=== PATIENT | male | born 1940 | race Caucasian/White ===

== ENCOUNTER 2018-04-17 14:27 | Inpatient (IN) ==
[2018-04-17] MEDS ORDERED: DILTIAZEM 50 MG/10 ML VIAL IV ONE (14:41)
[2018-04-17] MEDS ORDERED: SODIUM CHLORIDE 0.9% 100 ML IV ONE (14:42)
[2018-04-17] MEDS ORDERED: METOPROLOL TARTRATE 5 MG/5 ML VIAL IV ONE (14:48)
[2018-04-17] MEDS ORDERED: PROPOFOL 1,000 MG/100 ML BOTTLE IV ONE (14:51)
[2018-04-17] MEDS ORDERED: DILTIAZEM 25 MG/5 ML VIAL IV ONE (14:52)
[2018-04-17] MEDS ORDERED: DILTIAZEM 50 MG/10 ML VIAL IV STA (14:53)
[2018-04-17] MEDS ORDERED: ETOMIDATE 20 MG/10 ML VIAL IV ONE (14:53)
[2018-04-17] MEDS ORDERED: ROCURONIUM 100 MG/10 ML VIAL IV ONE (14:53)
[2018-04-17] MEDS ORDERED: METOPROLOL TARTRATE 5 MG/5 ML VIAL IV STA (14:54)
[2018-04-17] MEDS ORDERED: VECURONIUM 10 MG VIAL IV ONE (14:54)
[2018-04-17] MEDS: PROPOFOL 1,000 MG/100 ML BOTTLE IV SCH ×2 (14:58→23:09)
[2018-04-17] MEDS ORDERED: DILTIAZEM INJ 100 MG in SODIUM CHLORIDE 0.9% 100 ML IV SCH (15:00)
[2018-04-17] MEDS ORDERED: FUROSEMIDE 100 MG/10 ML VIAL ONE (15:01)
[2018-04-17 15:03] LABS: Lymphocytes % 14.6 % (21.2-54.2)
[2018-04-17] MEDS ORDERED: FUROSEMIDE 40 MG/4 ML VIAL IV STA (15:04)
[2018-04-17] MEDS ORDERED: hydrALAZINE 20 MG/1 ML VIAL IV STA (15:04)
[2018-04-17] MEDS ORDERED: MORPHINE 10 MG/1 ML VIAL IV ONE (15:04)
[2018-04-17 15:09] LABS: Apearance,Urine CLOUDY (Clear); Bacteria,Urine Many /HPF (Few); Barbiturates Screen,Urine Negative (Negative); Benzodiazepines Screen,Urine Negative (Negative); Bilirubin,Urine Negative (Negative); Blood, Urine Negative (Negative); Cannabinoid Screen,Urine Negative (Negative); Glucose,Urine (UA) Negative (Negative); Ketones,Urine 5 mg/dL (Negative); Nitrite,Urine Positive (Negative); Opiate Screen,Urine Negative (Negative); Phencyclidine Screen,Urine Negative (Negative); Protein,Urine 100 MG/DL; RBC,Urine 9 /HPF (0-4); Squamous Epithelial Cell,Urine Occasional /HPF (0-10); Urine Color Yellow (Yellow); Urine Specific Gravity 1.011 (1.001-1.035); Urine Urobilinogen < 2.0 EU/DL (0.2-1.0); WBC,Urine 265 /HPF (0-6)
[2018-04-17 15:12] LABS: Basophils # 0.2 10*3/uL (0.0-0.2); Eosinophils # 0.4 10*3/uL (0.0-0.87); Eosinophils % 2.9 % (0.00-10.9); Hematocrit 32.2 VOL% (42.0-52.0); Hemoglobin 9.6 GM/DL (14.0-18.0); Immature Granulocytes Absolute 0.46 #; Lymphocytes # 2.2 10*3/uL (1.4-4.0); Mean Corpuscular HGB Conc 29.8 GM/DL (32-36); Mean Corpuscular Hemoglobin 32 PG (27-34); Mean Corpuscular Volume 108.4 FL (87-102); Mean Platelet Volume 11.7 FL (9.6-12.0); Monocytes # 0.5 10*3/uL (0.11-0.8); Monocytes % 3.5 % (1.7-12.7); NRBC # 0.07 10*3/uL; Neutrophils # 11.5 10*3/uL (1.4-7.4); Platelet Count 260 T/CUMM (130-400); Red Blood Count 2.97 MC/CUMM (3.8-5.5); Red Cell Distribution Width 14.5 % (9.3-17.3); White Blood Count 15.3 T/CUMM (4-12)
[2018-04-17 15:13] LABS: ABG Base Excess -14.4 MMOL/L (-2.5-2.5); ABG HCO3 14.2 MMOL/L (20-26); ABG Oxygen Saturation 98.3 % (95-100); ABG TCO2 14.1 MMOL/L (23-27)
[2018-04-17 15:15] LABS: ABG PCO2 49.6 MM HG (35-48)
[2018-04-17 15:24] LABS: Albumin 4.2 G/DL (3.4-5.0); Bilirubin,Total 1.2 MG/DL (0.2-1.0); Calcium 9.1 MG/DL (8.5-10.1); Osmolality,Calculated 279.1 MOS/KG (273-304); Potassium 3.6 MMOL/L (3.5-5.1); Total Protein 8.5 G/DL (6.4-8.3)
[2018-04-17] MEDS ORDERED: ALBUTEROL 2.5 MG/3 ML NEB RESP TX PRN (15:34)
[2018-04-17] MEDS ORDERED: ONDANSETRON 4 MG/2 ML VIAL IV PRN (15:34)
[2018-04-17 15:53] LABS: Lymphocytes 4 % (20-55); Metamyelocytes 1 %; Segmented Neutrophils 94 % (50-85); Total Cells Counted 100; Toxic Granulation 1+
[2018-04-17 15:55] LABS: Anisocytosis Slight; Macrocytosis Slight; Polychromasia Slight
[2018-04-17 15:56] LABS: Platelet Estimate Normal; Spherocytes 2+
[2018-04-17] MEDS ORDERED: ACETAMINOPHEN 650 MG SUPP RECTAL PRN (15:58)
[2018-04-17 17:15] LABS: ABG Base Excess -3.2 MMOL/L (-2.5-2.5); ABG HCO3 21.8 MMOL/L (20-26); ABG Oxygen Saturation 98.4 % (95-100); ABG PCO2 44.9 MM HG (35-48); ABG PH 7.324 (7.35-7.45); ABG TCO2 18.8 MMOL/L (23-27); Allen Test Positive; Pt O2 Delivery Device Ventilator
[2018-04-17] MEDS ORDERED: NOREPINEPHRINE 8 MG in SODIUM CHLORIDE 0.9% 242 ML IV PRN (17:28)
[2018-04-17] MEDS: ENOXAPARIN 80 MG/0.8 ML SYRINGE SUBCUT SCH (17:37)
[2018-04-17] MEDS: PANTOPRAZOLE 40 MG VIAL IV SCH (17:37)
[2018-04-17] MEDS: cefTRIAXone 1,000 MG in SYRINGE 1 EACH IV SCH (17:38)
[2018-04-18 04:11] LABS: Basophils # 0.2 10*3/uL (0.0-0.2); Basophils % 0.8 % (0.0-0.8); Eosinophils # 0.2 10*3/uL (0.0-0.87); Hemoglobin 15.7 GM/DL (14.0-18.0); Immature Granulocytes % 1.5 %; Immature Granulocytes Absolute 0.33 #; Lymphocytes # 1.3 10*3/uL (1.4-4.0); Lymphocytes % 5.6 % (21.2-54.2); Mean Corpuscular HGB Conc 31.4 GM/DL (32-36); Mean Corpuscular Hemoglobin 31 PG (27-34); Monocytes # 0.9 10*3/uL (0.11-0.8); Neutrophils # 19.4 10*3/uL (1.4-7.4); Neutrophils % 87.1 % (38.7-73.9); Platelet Count 421 T/CUMM (130-400); Red Blood Count 5.05 MC/CUMM (3.8-5.5); Red Cell Distribution Width 14.9 % (9.3-17.3); White Blood Count 22.3 T/CUMM (4-12)
[2018-04-18 04:12] LABS: ABG HCO3 26.2 MMOL/L (20-26); ABG Oxygen Saturation 99.3 % (95-100); ABG PCO2 32.9 MM HG (35-48); ABG PH 7.482 (7.35-7.45); ABG TCO2 20.1 MMOL/L (23-27); Pt O2 Delivery Device Ventilator
[2018-04-18 04:39] LABS: Albumin 2.8 G/DL (3.4-5.0); Bilirubin,Total 1.4 MG/DL (0.2-1.0); Osmolality,Calculated 284.5 MOS/KG (273-304); Potassium 4.4 MMOL/L (3.5-5.1); Risk Ratio 3.19; Thyroid Stimulating Hormone 1.36 uIU/ml (0.358-3.74); Total Protein 5.8 G/DL (6.4-8.3); VLDL CHOLESTEROL 28.8 MG/DL
[2018-04-18] MEDS ORDERED: MAGNESIUM SULF RIDER 2 GM in PREMIX 1 EACH IV PRN (05:12)
[2018-04-18] MEDS: ENOXAPARIN 80 MG/0.8 ML SYRINGE SUBCUT SCH ×2 (05:22→17:10)
[2018-04-18 06:46] LABS: Band Neutrophils 18 % (0-10); Lymphocytes 1 % (20-55); Platelet Estimate Normal; Polychromasia Slight; Segmented Neutrophils 76 % (50-85); Total Cells Counted 100
[2018-04-18] MEDS: PROPOFOL 1,000 MG/100 ML BOTTLE IV SCH ×3 (07:02→23:20)
[2018-04-18 13:04] LABS: ABG PH 7.133 (7.35-7.45)
[2018-04-18] MEDS: PANTOPRAZOLE 40 MG VIAL IV SCH (16:14)
[2018-04-18] MEDS: cefTRIAXone 1,000 MG in SYRINGE 1 EACH IV SCH (17:06)
[2018-04-18] MEDS ORDERED: AMIODARONE INJ 450 MG in DEXTROSE 5% 241 ML IV SCH (18:00)
[2018-04-18] MEDS: MEROPENEM 1,000 MG in SODIUM CHLORIDE 0.9% 100 ML IV SCH (18:25)
[2018-04-19] MEDS: AMIODARONE INJ 450 MG in DEXTROSE 5% 241 ML IV SCH ×2 (04:08→18:15)
[2018-04-19 04:25] LABS: ABG HCO3 23.6 MMOL/L (20-26); ABG Oxygen Saturation 99.5 % (95-100); ABG PCO2 35.8 MM HG (35-48); ABG PH 7.437 (7.35-7.45); ABG PO2 261.2 MM HG (80-95); ABG TCO2 24.7 MMOL/L (23-27); Allen Test Positive; Pt O2 Delivery Device Ventilator
[2018-04-19] MEDS: PROPOFOL 1,000 MG/100 ML BOTTLE IV SCH ×3 (06:16→20:11)
[2018-04-19] MEDS: MEROPENEM 1,000 MG in SODIUM CHLORIDE 0.9% 100 ML IV SCH ×2 (06:19→17:49)
[2018-04-19] MEDS: ENOXAPARIN 80 MG/0.8 ML SYRINGE SUBCUT SCH ×2 (06:19→18:16)
[2018-04-19 07:36] LABS: Basophils # 0.1 10*3/uL (0.0-0.2); Basophils % 0.8 % (0.0-0.8); Eosinophils # 0.4 10*3/uL (0.0-0.87); Eosinophils % 2.4 % (0.00-10.9); Hematocrit 47.4 VOL% (42.0-52.0); Hemoglobin 14.9 GM/DL (14.0-18.0); Immature Granulocytes % 1.4 %; Immature Granulocytes Absolute 0.21 #; Lymphocytes # 0.8 10*3/uL (1.4-4.0); Lymphocytes % 5.3 % (21.2-54.2); Mean Corpuscular HGB Conc 31.4 GM/DL (32-36); Mean Corpuscular Hemoglobin 32 PG (27-34); Mean Corpuscular Volume 100.6 FL (87-102); Mean Platelet Volume 11.7 FL (9.6-12.0); Monocytes # 0.5 10*3/uL (0.11-0.8); Monocytes % 3.7 % (1.7-12.7); Neutrophils # 12.8 10*3/uL (1.4-7.4); Neutrophils % 86.4 % (38.7-73.9); Platelet Count 278 T/CUMM (130-400); Red Blood Count 4.71 MC/CUMM (3.8-5.5); Red Cell Distribution Width 14.7 % (9.3-17.3); White Blood Count 14.8 T/CUMM (4-12)
[2018-04-19 08:03] LABS: Calcium 8.4 MG/DL (8.5-10.1); Osmolality,Calculated 285.5 MOS/KG (273-304); Potassium 3.9 MMOL/L (3.5-5.1)
[2018-04-19] MEDS ORDERED: GLUCAGON 1 MG VIAL IM PRN (09:47)
[2018-04-19] MEDS ORDERED: DEXTROSE 50% 25 GM/50 ML SYRINGE IV PRN (09:47)
[2018-04-19] MEDS ORDERED: FUROSEMIDE 20 MG/2 ML VIAL IV ONE (12:59)
[2018-04-19] MEDS ORDERED: SODIUM CHLORIDE 0.45% 1,000 ML IV SCH (13:30)
[2018-04-19] MEDS: PANTOPRAZOLE 40 MG VIAL IV SCH (15:58)
[2018-04-19] MEDS: POTASSIUM CHLORIDE 20 MEQ/15 ML UDCUP PER TUBE PRN (21:36)
[2018-04-20] MEDS: PROPOFOL 1,000 MG/100 ML BOTTLE IV SCH ×2 (00:10→03:44)
[2018-04-20 04:35] LABS: Pt O2 Delivery Device Ventilator
[2018-04-20 04:37] LABS: ABG Base Excess 1.9 MMOL/L (-2.5-2.5); ABG HCO3 26.1 MMOL/L (20-26); ABG Oxygen Saturation 98.2 % (95-100); ABG PCO2 40.9 MM HG (35-48); ABG TCO2 22.5 MMOL/L (23-27)
[2018-04-20 05:23] LABS: Basophils # 0.1 10*3/uL (0.0-0.2); Basophils % 0.7 % (0.0-0.8); Eosinophils # 0.4 10*3/uL (0.0-0.87); Eosinophils % 3.6 % (0.00-10.9); Hematocrit 46.7 VOL% (42.0-52.0); Hemoglobin 14.6 GM/DL (14.0-18.0); Immature Granulocytes % 1.3 %; Immature Granulocytes Absolute 0.16 #; Lymphocytes # 0.7 10*3/uL (1.4-4.0); Lymphocytes % 5.5 % (21.2-54.2); Mean Corpuscular HGB Conc 31.3 GM/DL (32-36); Mean Corpuscular Hemoglobin 31 PG (27-34); Mean Corpuscular Volume 100.4 FL (87-102); Mean Platelet Volume 11.7 FL (9.6-12.0); Monocytes # 0.4 10*3/uL (0.11-0.8); Neutrophils # 10.4 10*3/uL (1.4-7.4); Neutrophils % 85.9 % (38.7-73.9); Platelet Count 290 T/CUMM (130-400); Red Blood Count 4.65 MC/CUMM (3.8-5.5); Red Cell Distribution Width 14.8 % (9.3-17.3); White Blood Count 12.2 T/CUMM (4-12)
[2018-04-20 05:43] LABS: Calcium 8.4 MG/DL (8.5-10.1); Osmolality,Calculated 290.4 MOS/KG (273-304); Potassium 3.5 MMOL/L (3.5-5.1)
[2018-04-20] MEDS: POTASSIUM CHLORIDE 20 MEQ/15 ML UDCUP PER TUBE PRN ×2 (06:27→08:00)
[2018-04-20] MEDS: ENOXAPARIN 80 MG/0.8 ML SYRINGE SUBCUT SCH ×2 (06:27→17:50)
[2018-04-20] MEDS: MEROPENEM 1,000 MG in SODIUM CHLORIDE 0.9% 100 ML IV SCH (06:27)
[2018-04-20] MEDS: AMIODARONE INJ 450 MG in DEXTROSE 5% 241 ML IV SCH (10:25)
[2018-04-20] MEDS: cefTRIAXone 1,000 MG in SYRINGE 1 EACH IV SCH (12:40)
[2018-04-20] MEDS: PANTOPRAZOLE 40 MG VIAL IV SCH (17:45)
[2018-04-20] MEDS ORDERED: METOPROLOL TARTRATE 5 MG/5 ML VIAL IV PRN (19:10)
[2018-04-20] MEDS: AMIODARONE 200 MG TABLET PO SCH (20:20)
[2018-04-20] MEDS: CARVEDILOL 6.25 MG TABLET PO SCH (20:20)
[2018-04-21 05:52] LABS: Calcium 9.3 MG/DL (8.5-10.1); Osmolality,Calculated 283.4 MOS/KG (273-304); Potassium 4.1 MMOL/L (3.5-5.1)
[2018-04-21] MEDS: ENOXAPARIN 80 MG/0.8 ML SYRINGE SUBCUT SCH (06:25)
[2018-04-21 07:56] LABS: Hematocrit 54.7 VOL% (42.0-52.0); Immature Granulocytes % 1.7 %; Immature Granulocytes Absolute 0.26 #; Lymphocytes # 0.8 10*3/uL (1.4-4.0); Lymphocytes % 5.3 % (21.2-54.2); Mean Corpuscular HGB Conc 31.8 GM/DL (32-36); Red Cell Distribution Width 14.7 % (9.3-17.3)
[2018-04-21 08:05] LABS: Basophils # 0.2 10*3/uL (0.0-0.2); Eosinophils # 0.4 10*3/uL (0.0-0.87); Eosinophils % 2.7 % (0.00-10.9); Mean Corpuscular Hemoglobin 31 PG (27-34); Mean Corpuscular Volume 98.6 FL (87-102); Monocytes # 0.6 10*3/uL (0.11-0.8); Monocytes % 3.9 % (1.7-12.7); Neutrophils % 85.4 % (38.7-73.9); Platelet Count 277 T/CUMM (130-400); Red Blood Count 5.55 MC/CUMM (3.8-5.5); White Blood Count 15.2 T/CUMM (4-12)
[2018-04-21 08:08] LABS: Hemoglobin 17.4 GM/DL (14.0-18.0)
[2018-04-21] MEDS: AMIODARONE 200 MG TABLET PO SCH ×2 (09:00→20:32)
[2018-04-21] MEDS: CARVEDILOL 6.25 MG TABLET PO SCH ×2 (09:00→20:31)
[2018-04-21] MEDS: APIXABAN 5 MG TABLET PO SCH ×2 (09:45→20:32)
[2018-04-21] MEDS ORDERED: amLODIPine 5 MG TABLET PO SCH (10:30)
[2018-04-21] MEDS: cefTRIAXone 1,000 MG in SYRINGE 1 EACH IV SCH (10:45)
[2018-04-21] MEDS ORDERED: NIFEdipine 10 MG CAPSULE PO PRN (11:38)
[2018-04-21] MEDS: PANTOPRAZOLE 40 MG VIAL IV SCH (15:50)
[2018-04-22 05:11] LABS: Basophils # 0.2 10*3/uL (0.0-0.2); Basophils % 1.5 % (0.0-0.8); Eosinophils # 0.6 10*3/uL (0.0-0.87); Hematocrit 52.8 VOL% (42.0-52.0); Hemoglobin 16.8 GM/DL (14.0-18.0); Immature Granulocytes % 1.4 %; Immature Granulocytes Absolute 0.19 #; Lymphocytes % 7.5 % (21.2-54.2); Mean Corpuscular HGB Conc 31.8 GM/DL (32-36); Mean Corpuscular Hemoglobin 32 PG (27-34); Mean Corpuscular Volume 99.8 FL (87-102); Mean Platelet Volume 11.6 FL (9.6-12.0); Monocytes # 0.6 10*3/uL (0.11-0.8); Monocytes % 4.2 % (1.7-12.7); Neutrophils # 11.2 10*3/uL (1.4-7.4); Neutrophils % 81.4 % (38.7-73.9); Platelet Count 345 T/CUMM (130-400); Red Blood Count 5.29 MC/CUMM (3.8-5.5); Red Cell Distribution Width 14.7 % (9.3-17.3); White Blood Count 13.7 T/CUMM (4-12)
[2018-04-22 05:19] LABS: Calcium 9.1 MG/DL (8.5-10.1); Osmolality,Calculated 285.3 MOS/KG (273-304)
[2018-04-22] MEDS ORDERED: hydrALAZINE 25 MG TABLET PO PRN (07:31)
[2018-04-22] MEDS: DILTIAZEM CD 180 MG CAPSULE PO SCH (09:10)
[2018-04-22] MEDS: cefTRIAXone 1,000 MG in SYRINGE 1 EACH IV SCH (09:11)
[2018-04-22] MEDS: PANTOPRAZOLE 40 MG TABLET PO SCH (09:11)
[2018-04-22] MEDS: AMIODARONE 200 MG TABLET PO SCH ×2 (09:11→21:34)
[2018-04-22] MEDS: CARVEDILOL 6.25 MG TABLET PO SCH ×2 (09:11→21:34)
[2018-04-22] MEDS: APIXABAN 5 MG TABLET PO SCH ×2 (09:11→21:34)
[2018-04-23 05:42] LABS: Basophils # 0.2 10*3/uL (0.0-0.2); Basophils % 1.2 % (0.0-0.8); Eosinophils # 0.6 10*3/uL (0.0-0.87); Eosinophils % 4.3 % (0.00-10.9); Hemoglobin 15.4 GM/DL (14.0-18.0); Immature Granulocytes % 2.1 %; Immature Granulocytes Absolute 0.28 #; Lymphocytes % 7.3 % (21.2-54.2); Mean Corpuscular HGB Conc 31.4 GM/DL (32-36); Mean Corpuscular Hemoglobin 32 PG (27-34); Mean Platelet Volume 11.6 FL (9.6-12.0); Monocytes # 0.5 10*3/uL (0.11-0.8); Monocytes % 3.8 % (1.7-12.7); Neutrophils % 81.3 % (38.7-73.9); Platelet Count 327 T/CUMM (130-400); Red Blood Count 4.85 MC/CUMM (3.8-5.5); Red Cell Distribution Width 14.6 % (9.3-17.3); White Blood Count 13.5 T/CUMM (4-12)
[2018-04-23 06:00] LABS: Calcium 8.8 MG/DL (8.5-10.1); Osmolality,Calculated 283.5 MOS/KG (273-304); Potassium 3.9 MMOL/L (3.5-5.1)
[2018-04-23] MEDS: cefTRIAXone 1,000 MG in SYRINGE 1 EACH IV SCH (09:51)
[2018-04-23] MEDS: AMIODARONE 200 MG TABLET PO SCH (09:56)
[2018-04-23] MEDS: DILTIAZEM CD 180 MG CAPSULE PO SCH (09:56)
[2018-04-23] MEDS: CARVEDILOL 6.25 MG TABLET PO SCH (09:56)
[2018-04-23] MEDS: APIXABAN 5 MG TABLET PO SCH (09:56)
[2018-04-23] MEDS: PANTOPRAZOLE 40 MG TABLET PO SCH (09:56)
[2018-04-23 11:39] VITALS: BP 167/88
[2018-04-23] MEDS ORDERED: hydrALAZINE 25 MG TABLET PO SCH (15:00)
[2018-04-23] MEDS ORDERED: CARVEDILOL 12.5 MG TABLET PO SCH (17:00)
[2018-04-24] MEDS ORDERED: AMIODARONE 200 MG TABLET PO SCH (09:00)
== END 2018-04-23 14:30 | disposition home or self-care (01) | DRG 871 ==
LOC: N.ED 14:27 → SUATTDRO 15:34 → N.EDINP 15:34 → N.ICU 16:25 → N.2E 04-21 17:02
PROVIDERS: ADMIT Internal Medicine; ATTEND Internal Medicine